=== PATIENT | male | born 1960 | race Caucasian/White ===

== ENCOUNTER 2016-09-21 11:08 | Emergency (ER) | payer MEDICAID, OTHER ==
--- NOTE | 2016-09-21 11:50 | ERNOTE ---
Back Pain ER HPI Date of Service: 09/21/16 Presenting Symptoms: injury/pain to back - denies injury or trauma Time Seen by Provider: 09/21/16 11:13 Source: patient Exam Limitations: no limitations Immunizations: IMMUNIZATION HX Immunizations Up to Date Yes History of Influenza Vaccine No Hx Pneumococcal Vaccination No Allergies/Adverse Reactions: Allergies codeine Adverse Reaction (Severe, Verified 09/21/16 11:26) Vomiting Home Medications: HOME MEDICATIONS HYDROcodone/ACETAMINOPHEN [Clarks 5-325] 1 tab PO Q4H PRN #20 tab 07/31/15 [Last Taken Unknown] Acetaminophen [Tylenol] 500 mg PO QID #30 tablet 09/21/16 [Last Taken Unknown] Cyclobenzaprine HCl [Flexeril] 10 mg PO TID PRN #30 tab NS 09/21/16 [Last Taken Unknown] Naproxen [Naprosyn] 500 mg PO BID #20 tablet 09/21/16 [Last Taken Unknown] Naproxen [Naprosyn] 500 mg PO BID PRN #60 tab 09/21/16 [Last Taken Unknown] - Pain Score Pain Score #1 Pain Score: 10 Narrative: patient is a 56 year old male without history of back pain/injury/surgery who presents to the ED with SO with complaints of sudden onset of lower back pain since Friday. Patient states he went to bed last Friday and awoke Friday with pain in lower back just above the coccyx region. Denies trauma, injury, altercation. States it has progressively worsened and by Friday he was so uncomfortable he could barely move around. States he had "Percocet or Vicodin--one of them that were left over from my dental pain" and he states that he took total of three and that it barely helped with pain. Denies constipation (last BM this morning), denies loss of bowel or bladder control. States he is on gabapentin for chronic neuropathy yet denies worsening numbness or tingling. Watched patient ambulate back to treatment room and patient was able to walk with slight limpring of right leg Date (Duration): 09/15/16 Timing: Reports: constant, getting worse Quality/Severity: Reports: severe, dullness Location of pain: Reports: lower back, other - radiates to the right. Denies: radiating to rt thigh/leg, radiating to lf thigh/leg Activities at Onset: Reports: none Recent Injury?: Reports: no Possible Precipitating Factor: Reports: turning/bending, none - patient states he went to bed without pain yet awoke Modifying Factors - (Improves): Reports: nothing Modifying Factors - (Worsens): Reports: supine position, upright position, movement to right, movement to left, movement flexion, cough/deep breaths Associated Symptoms: Reports: difficulty walking. Denies: fever/chills, sweating, constipation/incontinence, nausea/vomiting, problems urinating, lightheadedness, numbess/weakness in legs Prior Treament: Denies: treated by physician, recently hospitalized, similar symptoms before, currently on antibiotics Review of Systems - Review of Systems Constitutional: Absent: recent illness, fever, chills, diaphoresis, weakness, fatigue, malaise, weight loss EYE: Present: no symptoms reported ENT: Present: no symptoms reported Respiratory: Absent: shortness of breath, cough, orthopnea Cardiology: Present: no symptoms reported Gastrointestinal/Abdominal: Present: no symptoms reported. Absent: nausea, vomiting, constipation, abdominal pain Genitourinary: Present: no symptoms reported. Absent: decreased urinary output Musculoskeletal: Present: back pain. Absent: neck pain, joint swelling Skin: Absent: rash, dryness, lesions Neurological: Present: numbness - chronic numbness and tingling, on gabapentin. Absent: anxiety, depressed, emotional problems, headache, dizziness/light- headedness, seizure, weakness Endocrine: Present: no symptoms reported Hematologic/Lymphatic: Present: no symptoms reported Psych: Present: no symptoms reported - Patient's Past Medical History Patient History - Medical: No pertinent hx Patient History - Cardiac/Respiratory: No pertinent hx Patient History - Cancer: No Hx of Cancer Patient History - Surgical Procedures: Cholecystectomy, Other Patient History - Other: None - Family History Father Family History - Medical: , Diabetes Type 2 - Social History Living Situations: alone Abuse History: No History of abuse Psych History: No pertinent hx Smoking Status: Former smoker Do you dip or chew tobacco: No Alcohol Use: heavy Drug Use: none - Immunizations Immunizations Up to Date: Yes Hx Pneumococcal Vaccination: No History of Influenza Vaccine: No Physical Exam - Physical Exam General Appearance: Present: wd/wn, alert, no apparent distress Eye Exam: Normal inspection: bilateral, PERRL: bilateral Ears, Nose, Throat: Present: normal ENT inspection Neck: Present: normal inspection, nontender, full range of motion Respiratory: Present: no respiratory distress, normal breath sounds, no accessory muscle use, chest nontender, lungs clear. Absent: accessory muscle use, decreased breath sounds, crackles, rales, rhonchi, stridor, wheezing Cardiovascular/Chest: Present: regular rate, rhythm, no murmur, normal peripheral pulses Peripheral Pulses: N=norm/S=strong/W=weak/B=bound/A=absent: Radial (R): Normal, Radial (L): Normal Gastrointestinal/Abdominal: Present: normal bowel sounds, nontender, nondistended, soft, no organomegaly Rectal Exam: Present: deferred Male Genitals Exam: Present: deferred Back Exam: Present: normal inspection, CVA tenderness (R), vertebral tenderness , decreased range of motion. Absent: normal range of motion Extremity Exam: Present: normal inspection, non-tender, normal range of motion, no edema Neurological Exam: Present: alert, oriented, normal mood/affect, no motor/ sensory deficits Skin Exam: Present: normal color, warm/dry. Absent: diaphoresis, cyanosis Lymphatic Exam: Present: no adenopathy ED Progress - Vital Signs Patient's Vital Signs:: I have reviewed the patient's vital signs. Vital Signs: Vital Signs 09/21/16 11:18 Temperature 35.5 C L Pulse Rate 100 Respiratory 18 Rate Blood Pressure 145/107 O2 Sat by Pulse 97 Oximetry - Progress/Reassessment Chief Complaint: Back Pain Progress:: Improved Progress Note-Subjective: 09/21/16 12:36 patient states pain has decreased and "that the edge is off". States he feels more comfortable Departure Clinical Impression: Back pain Qualifiers: Back pain location: low back pain Chronicity: acute Back pain laterality: midline Sciatica presence: unspecified whether sciatica present Qualified Code(s ): M54.5 - Low back pain - Departure Disposition: Home Follow Up Needed Condition: Good Instructions: Back Pain, Adult, [id number]own, Form - Excuse from Work, School, or Physical Activity Additional Instructions: Heating pad to low back off and on throughout day. Do not fall asleep on heating pad due to increased risk of hall. Take medications as prescribed. Return immediately if loss of bladder or bowel occurs, dragging of either foot, loss of balance/falls or worsening weakness. If pain persists > 4 weeks, please follow up with your provider for possible follow up CT scan and/or MRI Referrals: Seble Gaming ARNP [Primary Care Provider] - Prescriptions: Acetaminophen [Tylenol] 500 mg PO QID #30 tablet Cyclobenzaprine HCl [Flexeril] 10 mg PO TID PRN #30 tab NS PRN Reason: MUSCLE SPASMS Naproxen [Naprosyn] 500 mg PO BID PRN #60 tab PRN Reason: Pain Naproxen [Naprosyn] 500 mg PO BID #20 tablet
[2016-09-21] MEDS ORDERED: CYCLOBENZAPRINE HCL 10 MG TABLET PO ONE (11:55)
[2016-09-21] MEDS ORDERED: KETOROLAC TROMETHAMINE 60 MG/2 ML VIAL IM ONE ×2 (11:56→11:57)
[2016-09-21] MEDS ORDERED: CYCLOBENZAPRINE HCL 10 MG TABLET ONE (11:57)
[2016-09-21 12:49] VITALS: BP 140/96
== END 2016-09-21 12:58 | disposition home or self-care (01) ==
LOC: ER 11:08
DX: M54.5 Low back pain (principal); Z87.891 Personal history of nicotine dependence